=== PATIENT | female | born 1995 | race Caucasian/White ===

== ENCOUNTER 2023-04-02 20:06 | Emergency (ER) | payer OTHER, SELFPAY ==
[2023-04-02 20:08] VITALS: BP 132/99; PULSE 97; RESP 22; TEMP 37; O2SAT 95; BMI 29.3
--- NOTE | 2023-04-02 20:08 | ED.SOB ---
HPI - SOB/Dyspnea General Chief Complaint: Asthma Stated Complaint: SOB, hx of asthma Time Seen by Provider: 04/02/23 20:17 Related Data Previous Rx's Medication Instructions Recorded albuterol sulfate 90 mcg/actuation 2 puff inhalation Q4-6H PRN 04/02/23 aerosol inhaler shortness of breath or wheezing #8.5 grams prednisone 50 mg tablet 50 mg PO DAILY #4 tabs 04/02/23 Allergies Allergy/AdvReac Type Severity Reaction Status Date / Time No Known Allergies Allergy Verified 04/02/23 20:22 [No Known Allergies*] [facility] Past Medical History Medical History (Updated 04/03/23 @ 00:02 by Background Daemon) Asthma Social History Social History Use of substances other than those prescribed or required for medical reasons: No Advance Directives: No Advance Directives Information Provided: No Patient : No Physical Exam Vital Signs: Vital Signs: Last Vital Signs Temp 98.6 F 04/02/23 20:08 Pulse 96 04/02/23 20:47 Resp 16 04/02/23 20:47 BP 132/99 H 04/02/23 20:08 Pulse Ox 95 04/02/23 20:18 O2 Del Method Room Air 04/02/23 20:18 BMI result Body Mass Index 29.3 Course Course Course Narrative: This is an RME: Additional HPI, ROS, PE not included below will be deferred to primary provider. Patient is a 27-year-old female who presents for evaluation of Sudden onset of shortness of breath difficulty breathing and wheezing all at [employer], believesthe smoke triggered this. Did not have inhaler on her though she does have a history of asthma. Audible wheezing, denies recent URI symptoms. Plan: ED [facility] protocol, moved EM bed for Medications Administered Discontinued Medications Generic Name Dose Route Start Last Admin Trade Name Freq PRN Reason Stop Dose Admin Albuterol Sulfate 5 mg 04/02/23 20:33 04/02/23 20:45 Albuterol Sulfate (0.083%) 2.5 Mg/3 Ml Vial.Neb INHALE 04/02/23 20:34 5 mg ONCE ONE Administration Prednisone 60 mg 04/02/23 20:33 04/02/23 20:54 Prednisone 20 Mg Tablet PO 04/02/23 20:34 60 mg ONCE ONE Administration Discharge Plan Discharge Clinical Impression: Asthma with acute exacerbation Patient Disposition: Home, Self-Care Instructions: Asthma (ED) Additional Instructions: Please follow-up with your primary care physician tomorrow. If you have any worsening or new symptoms, please return to the emergency room or call 911 Prescriptions: New albuterol sulfate 90 mcg/actuation HFA aerosol inhaler 2 puff inhalation Q4-6H PRN (Reason: shortness of breath or wheezing) Qty: 8.5 0RF prednisone 50 mg tablet 50 mg PO DAILY Qty: 4 0RF Interventions: ED Discharge Assessment Last Done: 04/02/23 21:07 Discharge Date/Time: 04/02/23 21:08
[2023-04-02 20:18] VITALS: RESP 20; O2SAT 95
--- NOTE | 2023-04-02 20:19 | PC.NURSE ---
spking full sentences, skin pwd. tripoding. audible wheeze. awaits updraft. resp is awre.
--- NOTE | 2023-04-02 20:33 | ED.ASTHMA ---
HPI - Asthma General Chief Complaint: Asthma Stated Complaint: SOB, hx of asthma Time Seen by Provider: 04/02/23 20:17 Source: patient Mode of arrival: ambulatory Limitations: no limitations History of Present Illness HPI Narrative: Patient comes to the emergency room complaining of shortness of breath/asthma. Patient does have history of asthma. However, patient has not had an exacerbation for several years and does not have an inhaler. Patient denies any chest pain. Denies fever or chills, no recent URI symptoms. No URI symptoms Related Data Previous Rx's Medication Instructions Recorded albuterol sulfate 90 mcg/actuation 2 puff inhalation Q4-6H PRN 04/02/23 aerosol inhaler shortness of breath or wheezing #8.5 grams prednisone 50 mg tablet 50 mg PO DAILY #4 tabs 04/02/23 Allergies Allergy/AdvReac Type Severity Reaction Status Date / Time No Known Allergies Allergy Verified 04/02/23 20:22 [No Known Allergies*] Review of Systems Review of Systems: Constitutional : No Weight loss, No Fever, No Chills, No Night Sweats, No Fatigue, No Malaise ENT/Mouth : No Hearing loss, No Ear Pain, No Nasal Congestion, No Sinus Pain, No Hoarseness, No sore throat, No Rhinorrhea, No Swallowing Difficulty Eyes: No Eye Pain, No Swelling, No Redness, No Foreign Body, No Discharge, No Vision Changes Cardiovascular : No Chest Pain, No SOB, No Dyspnea on Exertion, No Orthopnea, No Edema, No Palpitations Respiratory : No Cough, No Sputum, complaining of wheezing Gastrointestinal : No Nausea, No Vomiting, No Diarrhea, No Constipation, No abdominal Pain, No Hematochezia, No Melena Genitourinary : no irregular bleeding, No Dysuria, No Urinary Frequency, No Hematuria, No Urinary Incontinence, No Urgency, No Flank Pain, No Urinary Flow Changes, No Hesitancy Musculoskeletal : No joint pain, No Myalgias, No Joint Swelling Skin : No Skin Lesions, No rash Neuro : No Weakness, No Numbness, No Paresthesias, No Loss of Consciousness, No Dizziness, No Headache Psych : No Anxiety/Panic, No Depression, No SI/HI/AH/VH, No Social Issues, Heme/Lymph: No Bruising, No Bleeding,No Lymphadenopathy Endocrine : No Polyuria, No Polydipsia, No Temperature Intolerance PMFSH Past Medical History Medical History (Updated 04/02/23 @ 20:36 by Alicia Gandara MD) Asthma Physical Exam Vital Signs: Vital Signs: Last Vital Signs Temp 98.6 F 04/02/23 20:08 Pulse 97 04/02/23 20:08 Resp 20 04/02/23 20:18 BP 132/99 H 04/02/23 20:08 Pulse Ox 95 04/02/23 20:18 O2 Del Method Room Air 04/02/23 20:18 BMI result Body Mass Index 29.3 Const: Other: Appearance: Alert. Oriented X3. No acute distress. Eyes: Pupils equal, round and reactive to light. ENT: Pharynx normal. Neck: Normal inspection. Neck supple. No lymph nodes noted. No crepitus CVS: Normal heart rate and rhythm. Pulses normal. Normal S1 and S2 Respiratory: No respiratory distress. mild bilateral wheezing, good air movement, oxygen saturation 99% on room air Abdomen: Soft and nontender. No rigidity. No distention. Skin: Skin warm and dry. Normal skin color. Normal skin turgor. Extremities: No lower extremity edema. No Lacerations. No Rash Neuro: Oriented X 3. No motor deficit. No sensory deficit. Moving all extremities. No slurred speech. CN 2 through 12 grossly intact Psych: calm, cooperative, normal affect Medical Decision Making Medical Decision Making MDM Narrative: patient was giving a breathing treatment. Patient has minimal wheezing. Patient was given p.o. prednisone. Oxygen saturation within normal limits with no desaturations. Discharge Plan Discharge Clinical Impression: Asthma with acute exacerbation Patient Disposition: Home, Self-Care Instructions: Asthma (ED) Additional Instructions: Please follow-up with your primary care physician tomorrow. If you have any worsening or new symptoms, please return to the emergency room or call 911 Prescriptions: New albuterol sulfate 90 mcg/actuation HFA aerosol inhaler 2 puff inhalation Q4-6H PRN (Reason: shortness of breath or wheezing) Qty: 8.5 0RF prednisone 50 mg tablet 50 mg PO DAILY Qty: 4 0RF
--- OUTSIDE RECORDS SUMMARY | 2023-04-02 20:40 | XMS_ITS | Continuity of Care Document ---
Author Name Unknown Organization [facility] ter Address [address] [place] [address]- Care Team Providers Care Treer Name Role Phone Not on Staff, PCP Primary Care Physician Unavail able [place] [facility] [place] 09/21/[address] [address]- Discharge Disposition: A-D/C Walkout Attending Physician: Not on Staff, Attending MD Admitting Physician: Not on Staff, Admitting MD Referring Physician: Not on Staff, Referring MD Allergies, Adverse Reactions, Alerts Substance Reaction Severity Status NKA Active Immunizations Given and Recorded Vaccine Date Status Refusal Reason tetanus/diphtheria/pertussis, acel(Tdap) 12/06/17 Given tetanus/diphtheria/pertussis, acel(Tdap) 03/10/12 Given influenza virus vaccine, inactivated 03/10/12 Give n Medications albuterol CFC free 90 mcg/inh inhalation aerosol 2, puffs, Inhalation, 4 times a day, PRN, # 75 Gm, Refills 0, Tot. Refills 0, Maintenance, 06/22/2017:20:00 EDT, Aerosol, Route to Pharmacy Electronically, [id number], [facility]/pharmacy #[id number], 152.4, cm, 12/19/18 11:36:00 EDT, He... Start Date: 06/23/19 Status: Ordered albuterol CFC free 90 mcg/inh inhalation aerosol 2 puffs, Inhalation, Every 4 hours, PRN for wheezing, # 8.5 Gm, 0 Refills, Maintenance, Aerosol Start Date: 02/18/12 Status: Ordered azithromycin 500 mg oral tablet 2 tablet = 1,000 mg, By Mouth, Once, # 2 tablet, 0 Refills, Soft Stop, 04/19/15 15:02:13, Tablet, 2tablet By Mouth Once Start Date: 04/19/15 Status: Ordered Mirena 52 mg intrauteral device 1 each = 52 mg, Vaginally, Once, # 1 each, 0 Refills, Soft Stop, 10/31/14 11:00:36, 1 each Vaginally Once Start Date: 10/31/14 Status: Ordered oxyCODONE 5 mg oral capsule 1 capsule = 5 mg, By Mouth, Every 6 hours, PRN for pain, May take one half tab, # 6 capsule, 0 Refills, Maintenance, 12/07/17 2:02:36 EDT, Capsule Start Date: 12/07/17 Stop Date: 12/10/17 Status: Ordered Problem List Condition Effective Dates Status Health Status Inform ant Asthma(Confirmed) Active History of chlamydia(Confirmed) Active
--- OUTSIDE RECORDS SUMMARY | 2023-04-02 20:40 | XMS_ITS | Continuity of Care Document ---
Author Name Unknown Organization [facility] Naomi ebenezer Address [address] [place] [address] [address] [place] [address]- Care Team Providers Care Master Steam Yacht Name Role Phone Not on Staff, PCP Primary Care Physician Unavail able Encounter [facility] [place] Date(s): 01/17/21 - 02/16/21 [facility] [address] [place], [place] [address] Attending Physician: Julius Bess Admitting Physician: AdmJulius livingston Referring Physician: Admtr, Ar8 Allergies, Adverse Reactions, Alerts Substance Reaction Severity [...] 06/22/2017:20:00 EDT, Aerosol, Route to Pharmacy Electronically, [id number], [facility]/pharmacy #[id number], 152.4, cm, 12/19/18 11:36:00 EDT, He... [...] Date: 12/07/17 Stop Date: 12/10/17 Status: Ordered Peridex 0.12% liquid 15 mL = 0.018 Gm, By Mouth, 2 times a day, # 473 mL, 0 Refills, Maintenance, 01/06/21 22:23:00 EDT,Liquid, [facility]/pharmacy #[id number], Partial fill upon patient request if the prescription is for a scheduleII opioid drug., 15 mL By Mouth 2 times a day Start Date: 01/06/21 Status: Ordered Problem List Condition Effective Dates Status Health Status Inform ant Asthma(Confirmed) Active History of chlamydia(Confirmed) Active Social History Social History Type Response Smoking Status Never (less than 100 in lifetime) entered on: 01/17/21 Sex
--- OUTSIDE RECORDS SUMMARY | 2023-04-02 20:40 | XMS_ITS | Continuity of Care Document ---
Author Name Unknown Organization [facility] ter Address [address] [place] [id number]- Care Team Providers Care Paper Roller Name Role Phone Eyal Harrington MD Primary Care Physician Encounter [facility] [place] Date(s): 01/06/21 - 01/06/[address] [address]- Encounter Diagnosis Lip laceration(Final) - 01/06/21 Facial contusion(Final) - 01/06/21 Discharge Disposition: A-D/C Home Attending Physician: Rahel Melendez MD Admitting Physician: Rahel Melendez MD Referring Physician: Not on Staff, Referring [...] 06/22/2017:20:00 EDT, Aerosol, Route to Pharmacy Electronically, [id number], [facility]/pharmacy #[id number], 152.4, cm, 12/19/18 11:36:00 EDT, He... [...] mL, 0 Refills, Maintenance, 01/06/21 22:23:00 EDT,Liquid, [facility]/pharmacy #[id number], Partial fill upon patient request if the prescription is for a scheduleII opioid drug., 15 mL By Mouth 2 times a day Start Date: 01/06/21 Status: Ordered Problem List Condition Effective Dates Status Health Status Inform ant Asthma(Confirmed) Active History of chlamydia(Confirmed) Active Vital Signs Most recent to oldest [Reference Range]: 1 2 3 Oxygen Saturation [94-100 %] 100 % (01/06/21 10:51 PM) 100 % (01/06/21 3:13 PM) 100 % (01/06/21 6:54 AM) Pulse Rate [55-90 bpm] 97 bpm *H* (01/06/21 10:51 PM) 83 bpm (01/06/21 3:13 PM) 84 bpm (01/06/21 6:54 AM) Blood Pressure [90-138/55-84 mm Hg] 119/67mm Hg (01/06/21 10:51 PM) 118/77mm Hg (01/06/21 3:13 PM) 115/59mm Hg (01/06/21 6:54 AM) Respiratory Rate [16-30 br/min] 18 br/min (01/06/21 10:51 PM) 16 br/min (01/06/21 3:13 PM) 16 br/min (01/06/21 6:54 AM) Temperature [96.8-100.4 DegF] 98.5 DegF (01/06/21 3:13 PM) 98.2 DegF (01/06/21 6:54 AM) 98.2 DegF (01/06/21 6:53 AM) Mode of Delivery (Oxygen) Room air (01/06/21 10:51 PM) Room air (01/06/21 3:13 PM) Room air (01/06/21 6:54 AM) Blood pressure sites Arm, right (01/06/21 10:51 PM) Arm, right (01/06/21 3:13 PM) Arm, left (01/06/21 6:54 AM) Temperature Route Oral (01/06/21 3:13 PM) Oral (01/06/21 6:54 AM) Oral (01/06/21 6:53 AM)
--- OUTSIDE RECORDS SUMMARY | 2023-04-02 20:40 | XMS_ITS | Continuity of Care Document ---
Author Name Unknown Organization [facility] ter Address [address] [place] [id number]- Care Team Providers Care Marine Safety Officer Name Role Phone Not on Staff, PCP Primary Care Physician Unavail able Encounter [facility] Date(s): 06/23/19 - 06/23/[address] [address]- [facility] Encounter Diagnosis Acute asthma exacerbation(Final) - 06/23/19 Discharge Disposition: A-D/C Home Attending Physician: Brendan Ambrosio DO Admitting Physician: Brendan Ambrosio DO Referring Physician: Not on Staff, Referring MD [...] Maintenance, Aerosol Start Date: 02/18/12 Status: Ordered albuterol CFC free 90 mcg/inh inhalation aerosol 2, puffs, Inhalation, 4 times a day, PRN, # 75 Gm, Refills 0, Tot. Refills 0, Maintenance, 06/22/2017:20:00 EDT, Aerosol, Route to Pharmacy Electronically, [id number], [facility]/pharmacy #[id number], 152.4, cm, 12/19/18 11:36:00 EDT, He... Start Date: 06/23/19 Status: Ordered azithromycin 500 mg oral tablet [...] ant Asthma(Confirmed) Active History of chlamydia(Confirmed) Active Results Orders for Microbiology Reports Name Date Group A Strep Screen and Culture 06/23/19 Microbiology Reports TEST:Group A Strep Screen and Culture STATUS:Unauthenticated BODY SITE: SOURCE:THROAT COLLECTED DATE/TIME:06/23/19 3:15 PM Group A Strep Screen and Culture SPECIMEN DESCRIPTION : THROAT SWAB SPECIAL REQUESTS : NONE DIRECT EXAM : RAPID GROUP A RESULT IS NEGATIVE, REFER TO CULTURE RESULT. REPORT STATUS : PRELIMINARY REPORT Radiology Reports * Exam Date Time Procedure Performing Provider Status 06/23/19 5:22 PM Chest 2 Views Frontal and Lat Yahaira Perez; Auth (Verified) Notes: (Chest 2 Views Frontal and Lat) Reason For Exam: Shortness of Breath RESULT: Chest 2 Views Frontal and Lat Chest 2 Views Frontal and Lat Reason: Shortness of Breath; Clinical Question(s): Asthma; Hx of Present Illness: SOB Wheezing since last night.; Other Objective Findings: Breathing slightly labored. Speaking full sentences. Skin: WPD. set0 Segoe UI;}} viewkind4 uc1 pard f0 fs20 Breathing slightly labored. Speaking full sentences. Skin: WPD. par } COMPARISON: None. FINDINGS: LINES AND TUBES: None. LUNGS AND PLEURA: Clear lungs. Normal pulmonary vascularity. No pleural effusion. No pneumothorax. HEART, MEDIASTINUM AND KRISTIAN: Heart is normal in size. Normal mediastinal and hilar contour. BONES AND SOFT TISSUES: No acute abnormality. IMPRESSION: No acute abnormality. WSN: [id number] Ordering Physician: Joanne Robertson Dictated By: Aman Barrett MD Dictated Date/Time: 06/23/19 5:24 pm Reviewed By: Aman Barrett MD Signed By: Aman Barrett MD Signed Date/Time: 06/23/19 5:24 pm Transcribed By: SETH Transcribed Date/Time: 06/23/19 5:24 pm Vital Signs Most recent to oldest [Reference Range]: 1 2 3 Oxygen Saturation [94-100 %] 97 % (06/23/19 5:42 PM) 97 % (06/23/19 3:42 PM) 95 % (06/23/19 2:44 PM) Pulse Rate [55-90 bpm] 101 bpm *H* (06/23/19 5:42 PM) 99 bpm *H* (06/23/19 3:42 PM) 114 bpm *H* (06/23/19 2:44 PM) Blood Pressure [90-138/55-84 mm Hg] 141/91mm Hg *H* (06/23/19 5:42 PM) 142/88mm Hg *H* (06/23/19 2:44 PM) Respiratory Rate [16-30 br/min] 18 br/min (06/23/19 5:42 PM) 20 br/min (06/23/19 3:42 PM) 18 br/min (06/23/19 2:44 PM) Temperature [96.8-100.4 DegF] 98.9 DegF (06/23/19 5:42 PM) 98.2 DegF (06/23/19 2:44 PM) Mode of Delivery (Oxygen) Room air (06/23/19 5:42 PM) Room air (06/23/19 3:42 PM) Room air (06/23/19 2:44 PM) Blood pressure sites Arm, right (06/23/19 5:42 PM) Arm, right (06/23/19 2:44 PM) Temperature Route Oral (06/23/19 5:42 PM) Oral (06/23/19 2:44 PM)
--- OUTSIDE RECORDS SUMMARY | 2023-04-02 20:40 | XMS_ITS | Continuity of Care Document ---
Author Name Unknown Organization [facility] ter Address [address] [place] [id number]- Care Team Providers Care Sap Portal Architect Name Role Phone Not on Staff, PCP Primary Care Physician Unavail able [place] [facility] [place] - 03/07/[address] [address]- Discharge Disposition: A-D/C Walkout Attending Physician: Not [...] 06/22/2017:20:00 EDT, Aerosol, Route to Pharmacy Electronically, [id number], [facility]/pharmacy #[id number], 152.4, cm, 12/19/18 11:36:00 EDT, [...] Most recent to oldest [Reference Range]: 1 Oxygen Saturation [94-100 %] 99 % (03/07/20 5:09 PM) Pulse Rate [55-90 bpm] 80 bpm (03/07/20 5:09 PM) Blood Pressure [90-138/55-84 mm Hg] 118/ 81mm Hg (03/07/20 5:09 PM) Respiratory Rate [16-30 br/min] 19 br/mi n (03/07/20 5:09 PM) Temperature [96.8-100.4 DegF] 98.8 DegF (03/07/20 5:09 PM) Mode of Delivery (Oxygen) Room air (03/07/20 5:09 PM) Temperature Route Oral (03/07/20 5:09 PM)
[2023-04-02] MEDS: Albuterol Sulfate (0.083%) 2.5 MG/3 ML VIAL.NEB 5 MG INHALE (20:45)
[2023-04-02 20:47] VITALS: PULSE 96; RESP 16; O2SAT 97
[2023-04-02] MEDS: predniSONE 20 MG TABLET 60 MG PO (20:54)
== END 2023-04-02 21:08 | disposition home or self-care (01) ==
PROVIDERS: Emergency Provider Emergency Medicine
DX: J45.901 Unspecified asthma with (acute) exacerbation (principal)
CPT/HCPCS: 94640; 99284